=== PATIENT | male | born 1965 ===

== ENCOUNTER 2021-12-14 07:52 | Outpatient (CLI) | payer OTHER | END 2021-12-14 08:01 | disposition home or self-care (01) | LOC: SONOGRAMA 07:52 | PROVIDERS: ATTEND Family Medicine | DX: M65.312 Trigger thumb, left thumb (principal) ==

== ENCOUNTER 2022-04-29 08:31 | Outpatient (CLI) | payer OTHER | END 2022-04-29 08:40 | disposition home or self-care (01) | LOC: RAD 08:31 | PROVIDERS: ATTEND Physical Medicine & Rehabilitation Sports Medicine | DX: M75.31 Calcific tendinitis of right shoulder (principal); M18.12 Unilateral primary osteoarthritis of first carpometacarpal joint, left hand; M75.101 Unspecified rotator cuff tear or rupture of right shoulder, not specified as traumatic ==

== ENCOUNTER 2022-06-29 16:27 | Outpatient (CLI) | payer OTHER | END 2022-06-29 16:37 | disposition home or self-care (01) | LOC: RAD 16:27 | PROVIDERS: ATTEND Physical Medicine & Rehabilitation Sports Medicine | DX: M54.51 Vertebrogenic low back pain (principal); M17.11 Unilateral primary osteoarthritis, right knee; M17.12 Unilateral primary osteoarthritis, left knee ==